=== PATIENT | male | born 1960 | race Caucasian/White ===

== ENCOUNTER 2024-06-24 15:48 | Emergency (ER) | payer OTHER, SELFPAY ==
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
[2024-06-24 16:19] VITALS: BP 151/93; PULSE 72; RESP 16; TEMP 36.9; BMI 33.9
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
[2024-06-24 19:27] VITALS: BP 133/77; PULSE 69; RESP 16; TEMP 2.5; TEMP 36.5; O2SAT 98
== END 2024-06-24 19:28 | disposition home or self-care (01) ==
PROVIDERS: Emergency Provider Emergency Medicine; PCP Internal Medicine
DX: S13.4XXA Sprain of ligaments of cervical spine, initial encounter (principal); M54.2 Cervicalgia; V43.52XA Car driver injured in collision with other type car in traffic accident, initial encounter; Y93.89 Activity, other specified; Y92.488 Other paved roadways as the place of occurrence of the external cause; Y99.8 Other external cause status
CPT/HCPCS: 72125; 99282

== ENCOUNTER → 2024-06-24 16:26 | Outpatient (BNV) | payer SELFPAY | PROVIDERS: Emergency Provider Emergency Medicine; PCP Internal Medicine; Visit Provider Radiology Diagnostic Radiology | DX: M31.19 Other thrombotic microangiopathy (principal) | CPT/HCPCS: 72125 ==